=== PATIENT | female | born 1975 | race Caucasian/White ===

== ENCOUNTER 2024-11-02 18:21 | Emergency (ER) | payer BC ==
[~2024-11-02 18:21] MED LIST: Iopamidol-370 76% 500 ML MDV (1 ML CHARGE) ONE
[2024-11-02 19:50] LABS: #Basophils 0.06 10x3/uL (0.0-0.2); %Basophils 0.9 % (0.0-1.0); %Lymphocytes 47.2 % (21.0-51.0); %Monocytes 8.5 % (0.0-10.0); %Neutrophils 41.1 % (42.0-75.0); Hematocrit 37.8 % (36.0-47.0); Hemoglobin 12.8 g/dL (12.0-16.0); Mean Corpuscular HGB CONC 33.9 g/dL (32.0-36.0); Mean Corpuscular Hemoglobin 29.2 pg (27.0-31.0); Mean Corpuscular Volume 86.3 fL (78.0-98.0); Mean Platelet Volume 10.4 fL (7.4-10.4); Platelet Count 255 10x3/uL (130-400); RBC Distribution Width 11.9 % (11.5-14.5); Red Blood Cell (RBC) Count 4.38 mill/uL (4.20-5.40)
[2024-11-02 20:09] LABS: ALT (SGPT) 23 U/L (8-55); AST (SGOT) 20 U/L (5-34); Albumin 4.1 g/dL (3.5-5.0); Alkaline Phosphatase 126 U/L (40-110); Anion Gap 12 mmol/L (10-20); BUN (Urea Nitrogen) 13 mg/dL (7.0-18.7); Bilirubin, Total 0.3 mg/dL (0.2-1.2); Calc. Creatinine Clearance 0 mL/min (70-130); Calcium 9.3 mg/dL (7.8-10.44); Carbon Dioxide 26 mmol/L (22-29); Chloride 105 mmol/L (98-107); Estimated GFR 83; Globulin 3.6 g/dL (2.4-3.5); Glucose 93 mg/dL (70-105); Lipase 27 U/L (8-78); Potassium 3.6 mmol/L (3.5-5.1); Protein, Total 7.7 g/dL (6.0-8.3); Sodium 139 mmol/L (136-145)
[2024-11-02 20:13] LABS: Troponin I Less than 0.010 ng/mL (< 0.028)
== END 2024-11-02 21:20 | disposition home or self-care (01) ==
LOC: ERS 18:21
DX: R07.2 Precordial pain (principal)
CPT/HCPCS: 36415; 71045; 71275; 80053; 83690; 83880; 84484; 85025; 93005; 94760; Q9967

== ENCOUNTER 2025-06-03 09:09 | Outpatient (CLI) | payer BC | END 2025-06-03 09:10 | disposition home or self-care (01) | LOC: MRI 09:09 | DX: G43.909 Migraine, unspecified, not intractable, without status migrainosus (principal); R47.81 Slurred speech; R43.1 Parosmia; G93.9 Disorder of brain, unspecified | CPT/HCPCS: 70553; 76376 ==

== ENCOUNTER 2025-06-18 10:49 | Outpatient (CLI) | payer BC | END 2025-06-18 10:50 | disposition home or self-care (01) | LOC: SCSMRI 10:49 | DX: R29.90 Unspecified symptoms and signs involving the nervous system (principal); M47.812 Spondylosis without myelopathy or radiculopathy, cervical region; M48.02 Spinal stenosis, cervical region | CPT/HCPCS: 72141 ==